=== PATIENT | male | born 1990 | race Caucasian/White ===

== ENCOUNTER 2016-11-10 09:21 | Emergency (ER) | payer BC ==
--- NOTE | 2016-11-10 10:20 | ER Document Report ---
ED Animal Bite - General Mode of Arrival: Ambulatory Information source: Patient - HPI Location of injury: LLE, RLE Severity of injury: Scratched Onset: Last week Quality of pain: No pain Pain Level: 0 Context of attack: "Unprovoked" attack Type of animal: raccoon Appearance of animal: Unknown Animal's immunizations: Unknown - General Chief Complaint: Animal Bite Stated Complaint: POSSIBLE RACOON SCRATCH Time Seen by Provider: 11/10/16 09:39 Notes: -year-old male presents to ED for possible animal exposure. He has multiple scratches to bilateral lower legs. He states that something scratched him on the legs on Thursday. He is nervous about what scratching because he saw something that could have possibly been a raccoon in the room. He the animal throughout a dryer vent to get into the house concerned that he needs the rabies vaccine shot. (RADHA CHRISTIE) - Related Data Allergies/Adverse Reactions: No Known Allergies Allergy (Unverified 11/10/16 10:02) Past Medical History - General Information source: Patient - Social History Smoking Status: Never Smoker Cigarette use (# per day): No Chew tobacco use (# tins/day): No Smoking Education Provided: No Frequency of alcohol use: None Drug Abuse: None Lives with: Family Family History: Arthritis, CAD, COPD, CVA, DM, Hyperlipidemia, Hypertension, Malignancy, Thyroid Disfunction Patient has suicidal ideation: No Patient has homicidal ideation: No - Past Medical History Cardiac Medical History: Reports: None Pulmonary Medical History: Reports: None Neurological Medical History: Reports: None Endocrine Medical History: Reports: None Renal/ Medical History: Reports: None Malignancy Medical History: Reports None GI Medical History: Reports: None Musculoskeltal Medical History: Reports None Skin Medical History: Reports None Psychiatric Medical History: Reports: None Traumatic Medical History: Reports: None Infectious Medical History: Reports: None Surgical Hx: Negative - Immunizations Immunizations up to date: No Hx Diphtheria, Pertussis, Tetanus Vaccination: No Review of Systems - Review of Systems Constitutional: No symptoms reported EENT: No symptoms reported Cardiovascular: No symptoms reported Respiratory: No symptoms reported Gastrointestinal: No symptoms reported Genitourinary: No symptoms reported Male Genitourinary: No symptoms reported Musculoskeletal: Other - scratches to lower lefs Skin: Other - To both lower legs with some abnormal Hematologic/Lymphatic: No symptoms reported Neurological/Psychological: No symptoms reported -: Yes All other systems reviewed and negative Physical Exam - Vital signs Interpretation: Normal - General General appearance: Appears well, Alert - HEENT Head: Normocephalic, Atraumatic Eyes: Normal Pupils: PERRL - Respiratory Respiratory status: No respiratory distress Chest status: Nontender Breath sounds: Normal Chest palpation: Normal - Cardiovascular Rhythm: Regular Heart sounds: Normal auscultation Murmur: No - Abdominal Inspection: Normal Distension: No distension Bowel sounds: Normal Tenderness: Nontender Organomegaly: No organomegaly - Back Back: Normal, Nontender - Extremities General upper extremity: Normal inspection, Nontender, Normal color, Normal ROM , Normal temperature General lower extremity: Normal inspection, Nontender, Normal color, Normal ROM , Normal temperature, Normal weight bearing. No: Denisse's sign - Neurological Neuro grossly intact: Yes Cognition: Normal Orientation: AAOx4 [place] Coma Scale Eye Opening: Spontaneous [place] Coma Scale Verbal: Oriented Raud[place] Coma Scale Motor: Obeys Commands Raudel Coma Scale Total: 15 Speech: Normal Motor strength normal: LUE, RUE, LLE, RLE Sensory: Normal - Psychological Associated symptoms: Normal affect, Normal mood - Skin Skin Temperature: Warm Skin Moisture: Dry Skin Color: Normal Location of irregularity: Extremities - animal scratches to lower legs - Vital signs Vitals: Temp Pulse Resp BP Pulse Ox 98.2 F 108 H 14 167/83 H 98 11/10/16 09:24 11/10/16 09:24 11/10/16 09:24 11/10/16 09:24 11/10/16 09:24 Course - Re-evaluation Re-evalutation: 11/10/16 10:32 I have discussed case with the nurse practitioner and I have personally examined the patient. He is a 26-year-old male that had some exposure to an animal in his house. The patient's mother states that there was evidence of an abnormal entry. There has been sightings of raccoons in the area. They have had possums gain access to the house in the past. Patient states he was scratched during the night. While I do not see any evidence of true bite murray , there is certainly a possibility of saliva contact from raccoon claws. There is evidence of breaks in the skin with superficial scratches to the posterior lower leg. The plan will be to administer rabies vaccine and immunoglobulin. ( MARYSOL FELIX) 11/10/16 16:29 (RADHA CHRISTIE) - Vital Signs Vital signs: Temp Pulse Resp BP Pulse Ox 98.1 F 114 H 20 139/91 H 97 11/10/16 11:10 11/10/16 11:10 11/10/16 11:10 11/10/16 11:10 11/10/16 11:10 Discharge - Discharge Clinical Impression: Animal scratch Condition: Stable Disposition: HOME, SELF-CARE Instructions: Family Physicians / Practices Additional Instructions: Animal scratches Animal bites are often heavily contaminated with bacteria. In spite of thorough cleansing and proper treatment, these wounds frequently become infected. Bite wounds of the hands are especially prone to complications. Bites are dressed, if possible. Large wounds may require suturing after internal cleansing. Because of infection risk, some large wounds must remain unstitched. Your doctor is trained to advise you on the best treatment for your bite. Call the doctor at once if the wound becomes red, swollen, warm, increasingly painful, or if it begins to drain. Danger signs also include red streaks up the involved extremity, swollen glands in the groin or under the arm , or fever and chills. The risk of rabies from domestic animals is very low. Bats, sick animals, and wild animals may expose you to rabies. The physician, or the health department, will inform you if you will need to receive the rabies vaccine. A sheet that she will get outpatient babysat on the date listed on the sheet please come back to the emergency room on both dates and gets her shot. Rabies Prophyllaxis Rabies immunization can prevent infection with the rabies virus. This virus is always fatal if it reaches the nervous system. Exposure to an infected animal's saliva requires a series of shots. If you're already immunized, you may need only a booster shot. It's critical for you to follow the exact schedule of immunizations. After the first shot, we give repeat doses in 3 days, 7 days, 14 days, and 28 days. The repeat doses can also be given through the Health Department or by special arrangement with your doctor. Ibuprofen or acetaminophen can be used for aching and swelling at the injection site. Call the doctor or return if you develop increasing pain, fever , chills, or spreading redness, or if you become short of breath or faint. Doxycycline Doxycycline (Vibramycin, Doryx) is an antibiotic of the tetracycline family. This type of drug is useful for infections of the respiratory tract and genital tract, and is sometimes used for intestinal infections. Unlike most tetracyclines, doxycycline can be taken with food. It is longer acting, and (usually) less prone to side effects than regular tetracycline. Tetracycline antibiotics can stain immature teeth and SHOULD NOT BE TAKEN BY CHILDREN, NURSING MOTHERS, OR WOMEN. Tetracyclines can make you more prone to sunburn. Abdominal cramping, nausea, and diarrhea are occasional side effects. Women may experience vaginal yeast infections. Call the doctor at once if you develop hives, itching, shortness of breath , or lightheadedness. Soap Cleansing Gently wash the wound daily using a mild soap (like Ivory, Phisoderm, Neutrogena). Use warm water, rubbing gently until all debris, ooze, and crusting have been washed from the wound. Allow to dry briefly (about 10 minutes) after cleaning. Repeat this cleansing at least three times a day for the first two days and then once or twice a day. FOLLOW-UP CARE: If you have been referred to a physician for follow-up care, call the physician s office for an appointment as you were instructed or within the next two days. If you experience worsening or a significant change in your symptoms, notify the physician immediately or return to the Emergency Department at any time for re-evaluation. Prescriptions: Doxycycline Hyclate [Vibramycin] 100 mg PO BID #20 capsule Forms: Elevated Blood Pressure
[2016-11-10] MEDS ORDERED: RABIES IMMUNE GLOBULIN INJ/PF 300 UNIT/2 ML SDV IM ONE (11:10)
[2016-11-10 11:11] VITALS: BP 139/91
[2016-11-10] MEDS ORDERED: RABIES VACCINE (PCEC)/PF 2.5 UNIT/1 ML KIT IM ONE (11:11)
== END 2016-11-10 11:52 | disposition home or self-care (01) ==
LOC: ER 09:21
DX: S81.852A Open bite, left lower leg, initial encounter (principal); S81.851A Open bite, right lower leg, initial encounter; W55.51XA Bitten by raccoon, initial encounter
CPT/HCPCS: 90376; 90471; 90675; 96372; 99283